=== PATIENT | male | born 1995 ===

== ENCOUNTER 2025-03-14 14:15 | Outpatient (AMB) | payer OTHER, SELFPAY ==
--- OUTSIDE RECORDS SUMMARY | 2025-03-13 10:15 | XMS_ITS | Encounter Summary ---
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 Marisol Veliz MD [address] [place] [address] Phone: tel: fax: [address] [address] Phone: tel: fax: Referral ID Status Reason Start Date Expiration Date Visits Requested Visits Authorized [id number] Authorized Specialty Services Required 12/02/2024 12/02/2025 21 21 Encounter Details Date Type Department Care Team (Latest Contact Info) Description 03/13/2025 10:15 AM EDT Treatment [address] [address] Quinton Burgos, PT 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) Social History Tobacco Use Types Packs/Day Years Used Date Smoking Tobacco: Never Smokeless Tobacco: Never Alcohol Use Standard Drinks/Week Comments Yes 0 (1 standard drink = 0.6 oz pur e alcohol) Sex and Gender Information Value Date Recorded Sex Assigned at Not on file Legal Sex Male 10:24 AM EST Gender Identity Not on file Sexual Orientation Not on file documented as of this encounter Progress Notes * Quinton Burgos, PT - 03/13/2025 10:15 AM EDT [facility] - Outpatient PHYSICAL THERAPY DAILY TREATMENT NOTE - OP Date: 03/13/2025 Visit Number: [id number] Patient Name: Keron Singleton : 1995 Age: 29 y.o. Gender: male Diagnosis: ICD-10-CM ICD-9-CM 1. 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 Precautions: Fall risk: No SUBJECTIVE Subjective Report: No new complaints. Pt states he had an uneventful weekend. Pt states he does notuse cane in the home, community only Chart Reviewed: Yes Pain: No pain reported TREATMENT INTERVENTION: Nustep at level 7 x7 min Leg press with 8 cords x15 x3 sets LLE Single-leg standing with right foot floor to/from chair seat height x15 x3 sets without BUE support and attempting to maintain neutral trunk in frontal plane for increasing left hip stability Standing left gastroc stretch with 30 sec hold x3 Side stepping along parallel bars without UE support vs purple t-band x3 laps x3 sets ASSESSMENT/Response to Treatment Good Pt with improving left hip stability with ambulation with or without cane appearing similar Patient Education: Education provided: HEP Education Provided To: Patient utilizing Explanation and Demonstration mode(s) of education Response to Education: Applied Knowledge and Verbal Understanding PLAN POC Development/Review: No Change in the Plan of Care; Participants: Patient Interventions Time Entry: Modalities: Therapeutic procedures: Total Treatment Time: 40 Documentation completed by Quinton Burgos, PT [1] Current Outpatient Medications on File Prior to Visit Medication Sig Dispense Refill acetaminophen (TYLENOL) 325 mg tablet Take 2 tablets (650 mg total) by mouth. amantadine (SYMMETREL) 100 mg capsule TAKE 1 CAPSULE BY MOUTH TWICE A DAY (Patient taking differently: Take 1 capsule (100 mg total) by mouth 1 (one) time each day.) 180 capsule 1 ketoconazole (NIZORAL) 2 % shampoo Shampoo daily, leave on for 5-10 minutes, then rinse. 120 mL 0 traZODone (DESYREL) 50 mg tablet Take 1 tablet (50 mg total) by mouth at bedtime. 30 each 2 Vitamin D3 50 mcg (2,000 unit) tablet TAKE 1 TABLET BY MOUTH EVERY DAY 30 tablet 0 No current facility-administered medications on file prior to visit. documented in this encounter Plan of Treatment Upcoming Encounters Date Type Department Care Team (Late st Contact Info) Description 03/15/2025 5:15 PM EDT Treatment [facility] [address] [address] Quinton Burgos, PT 04/19/2025 2:30 PM EST Office Visit Adult Medicine - [place] [address] [place] [address] Marisol Veliz MD [address] [place] [address] documented as of this encounter Goals Goal Patient Goal Type Associated Problems Recent Progress Patient-Stated? Author OT/vestib goals 8 visits General On track( 4:57 PM EDT) No Bonny Pretty, OT Note: Pt/mom will report compliance of HEP (pt requires A from Mom) 11/21 MET Pt will report no dizziness w/ tilting head to take medicine or sit to stand. 11/21; reports only occurs if/when has been sitting prolonged Pt will partic in baseline balance testing w/ approp addtl goals to follow 09/13/24 MET 09/13/24 Addtl goals TUG score reduced from 22 sec to no greater than 18 sec 11/21 MET and exceeded at 13 sec DGI score improved from 14 to at least 18/24 11/21 TRADE SPECIALIST LTG General On track( 025 3:27 PM EDT) No Jumana Mercedes, TRADE SPECIALIST Note: Pt will improve cognitive linguistic function to participate and communicate in iADLs supervision TRADE SPECIALIST STGs General On track( 025 5:23 PM EDT) No Jumana Mercedes, TRADE SPECIALIST Note: Pt will complete training re semantic feature analysis and other word retrieval strategies and verbalize 3 descriptors/functions/synonyms in structured tasks given min verbal cues Pt will be Oriented x 4 using environmental stimuli min verbal cues Pt will participate in ongoing training of internal/external memory strategies and ID pertinent techniques to use in daily life independently Pt will complete verbal and written concrete divergent organization tasks with min cues to ID perseveration Pt will complete auditory and visual working memory/mental flexibility tasks of 2-3 components with min cues to be 80%ac PT LTGs General No Quinton Burgos, PT Note: Pt will increase FGA without AD to to indicate improved balance with functional mobility Pt will increase left hip abduction strength to 5/5 for increased hip stability in SLS with ambulation Pt will increase Left ankle PROM DF to 10 degrees for improved ankle mobility with ambulation Pt will be independent with HEP Pt will ambulate >1100 ft in 6 minutes without AD independently documented as of this encounter Visit Diagnoses Diagnosis 

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
--- OUTSIDE RECORDS SUMMARY | 2025-03-14 19:14 | XMS_ITS | Clinical Summary ---
Author Organization [facility] [address] [facility] lding Address [address] [place] [address] Phone Care Team Providers Care Career Agent Name Role Phone Marisol Veliz MD Primary Care Prov ider Allergies No known active allergies Medications acetaminophen (TYLENOL) 325 mg tablet Take 2 tablets (650 mg total) by mouth. 4 Active Vitamin D3 50 mcg (2,000 unit) tablet TAKE 1 TABLET BY MOUTH EVERY DAY 30 tablet 4 Active amantadine (SYMMETREL) 100 mg capsule TAKE 1 CAPSULE BY MOUTH TWICE A DAY 180 capsule 1 5 Active Additional Information Patient taking differently:100 mg oralDaily, Reported on 01/17/2025 traZODone (DESYREL) 50 mg tablet Take 1 tablet (50 mg total) by mouth at bedtime. 30 each 2 5 Active ketoconazole (NIZORAL) 2 % shampoo Shampoo daily, leave on for 5-10 minutes, then rinse. 120 mL 5 03/14/20 26 Active ketoconazole (NIZORAL) 2 % shampoo Shampoo daily, leave on for 5-10 minutes, then rinse. 120 mL 5 03/14/20 25 Discontin ued(Reord er) Active Problems Problem Noted Date Diagnosed Date Anemia 03/30/2024 Asthma 03/30/2024 Underweight 03/30/2024 Closed fracture of shaft of left femur with jese yed healing 11/23/2023 Overview (03/30/2024): Commuted fracture of the distal tibia met of the facets with mild anterior lateral displacement of the distal bone overlying extensive soft tissue edema inflammation and minimal subcutaneous emphysema There was close reduction with manipulation and placement of a Eduardo X transfix external fixation system of the left distal tibia fracture Head trauma 11/23/2023 Overview (03/30/2024): CT scan showed small hemorrhage focus at the left frontal convexity consider the possibility of axonal injury small amount of left intraventricular hemorrhage linear fracture of the squamous portion of the temporal bone extending to the mandibular fossa with additional multiple facial fractures 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 11/23/2023 Overview (03/30/2024): CT maxillofacial showed left zygomatic complex fracture with diastatic fracture of the left temporal zygomatic suture and zygomatic maxillary suture fracture of the left zygomatic arch left orbital floor fracture and medial orbital fracture with extension into the lamina propria Attention deficit hyperactiv ity disorder (ADHD), predominantly inattentive type 12/18/2021 Encounters Date Type Department Care Team Description 03/13/2025 10:15 AM EDT Treatment [facility] [address] [phone] Quinton Burgos, PT 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) 03/08/2025 5:15 PM EDT Treatment [facility] [address] [phone] Quinton Burgos, PT 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) 03/06/2025 10:15 AM EDT Treatment [facility] [address] [phone] Quinton Burgos, PT 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) 03/01/2025 5:15 PM EDT Treatment [facility] [address] [phone] Quinton Burgos, PT 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) 02/27/2025 10:30 AM EDT Treatment [address] [phone] Quinton Burgos, PT 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) 02/23/2025 5:15 PM EDT Treatment [address] [phone] Quinton Burgos, PT 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) 02/20/2025 10:15 AM EDT Treatment [address] [phone] Quinton Burgos, PT 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) 02/10/2025 Telephone Adult [address] [phone] Marisol Montes MD 01/19/2025 3:00 PM EDT Evaluation [address] [phone] Quinton Burgos, PT 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 01/17/2025 1:15 PM EDT Office Visit Adult [address] [phone] Marisol Montes MD 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); Mild persistent asthma without complication 12/13/2024 Telephone Adult [address] [phone] Marisol Montes MD from Last 3 Months Immunizations Immunization Administration Dates Next Due Influenza Quadravalent, MDCK , 0.5ml, preservative free (Flucelvax) 6mo and older 03/21/2022 Tdap Tetanus diptheria acell ular pertussis (Boostrix; Adacel) 7yo and older 09/08/2017 Surgical History Surgery Date Site/Laterality Comments OTHER SURGICAL HISTORY PROCEDURE: DENIES PREVIOUS SURGERY Medical History Medical History Date Comments Anemia DX:Anemia Asthma DX:Asthma Family History Medical History Relation Name Comments Diabetes Maternal Grandmother Other: IBS Mother Relation Name Status Comments Maternal Grandmother Mother Social History Tobacco Use Types Packs/Day Years Used Date Smoking Tobacco: Never Smokeless Tobacco: Never Tobacco Cessation:Counseling Given: Not Answered Alcohol Use Standard Drinks/Week Comments Yes 0 (1 standard drink = 0.6 oz pur e alcohol) Sex and Gender Information Value Date Recorded Sex Assigned at Not on file Legal Sex Male 10:24 AM EST Gender Identity Not on file Sexual Orientation Not on file Obstetrics History Last Filed Vital Signs Vital Sign Reading Time Taken Comments Blood Pressure 103/64 01/17/2025 1:14 PM EDT Pulse 71 01/17/2025 1:14 PM EDT Temperature 36.9 C (98.5 F) 01/17/2025 1:14 PM EDT Respiratory Rate - - Oxygen Saturation - - Inhaled Oxygen Concentration - - Weight 65.9 kg (145 lb 3.2 oz) 01/17/2025 1:14 P M EDT Height 180.3 cm (5' 11 ) 02/19/2024 3:40 PM EDT Body Mass Index 20.25 02/19/2024 3:40 PM EDT Plan of Treatment Upcoming Encounters Date Type Department Care Team (Late st Contact Info) Description 03/15/2025 5:15 PM EDT Treatment [address] [phone] uQinton Burgos, PT 04/19/2025 2:30 PM EST Office Visit Adult Medicine - [place] [address] [place] [phone] Marisol Veliz MD [address] [place] [address] Health Maintenance Due Date Last Done Comments Hepatitis B Vaccines (1 of 3 - 19+ 3-dose series) 09/26/2015 Pneumococcal Vaccine: Pediatrics (0 to 5 Years) and At-Risk Patients (6 to 49 Years) (1 of 2 - PCV) 09/26/2015 COVID-19 Vaccine (3 - Modern a risk series) 02/06/2021 01/09/2021, 12/12/2020 Social Influencers of Health Screening 05/03/2022 HPV Vaccines (1 - 3-dose SCD M series) 09/26/2023 Depression Screening 05/25/2024 Influenza Vaccine (#1) 2025 03/21/2022 Cholesterol Screening (Lipid Panel) 03/22/2026 03/22/2021 DTaP,Tdap,and Td Vaccines (2 - Td or Tdap) 09/09/2027 09/08/2017 RSV Immunization Adult Patients (1 - 1-dose 75+ series) 09/26/2071 HIV Screening Completed 08/21/2022 Hepatitis C Screening Completed 08/21/2022 HIB Vaccines Aged Out No longer eligi ble based on patient's age to complete this topic Hepatitis A Vaccines Aged Out No long er eligible based on patient's age to complete this topic IPV Vaccines Aged Out No longer eligi ble based on patient's age to complete this topic MMR Vaccines Aged Out No longer eligi ble based on patient's age to complete this topic Meningococcal ACWY Vaccine Aged Out N o longer eligible based on patient's age to complete this topic Meningococcal B Vaccine Aged Out No l onger eligible based on patient's age to complete this topic RSV Immunization Patients Under 20 months Aged Out No longer eligible b ased on patient's age to complete this topic Varicella Vaccines Aged Out No longer eligible based on patient's age to complete this topic Goals Goal Patient Goal Type Associated Problems Recent Progress Patient-Stated? Author OT/vestib goals 8 visits General On track( 025 4:57 PM EDT) No Bonny Pretty, OT [...] at 13 sec DGI score improved from 14/24 to at least 18/24 11/21 WHEAT BUYER LTG General On track( 025 3:27 PM EDT) No Jumana Mercedes, WHEAT BUYER Note: Pt will improve cognitive linguistic function to participate and communicate in iADLs supervision WHEAT BU[employer]ER STGs General On track( 025 5:23 PM EDT) No Jumana Mercedes, WHEAT BUYER Note: Pt will complete training re semantic [...] ft in 6 minutes without AD independently Procedures Procedure Name Priority Date/Time Associated Diagnosis Comments HEPATITIS C SCREENING Routine 08/21/2022 HIV SCREENING Routine 08/21/2022 LIPID PANEL Routine 03/22/2021 from Last 3 Months or Most Recently Relevant to Health Maintenance Results * HIV Screening (08/21/2022) HIV Screening Abstracted us Historical Provider HEALTH MAINTENANCE Final Result * Hepatitis C Screening (08/21/2022) Pathologist [facility] Hepatitis C Screening Abstracted us Historical Provider HEALTH MAINTENANCE Final Result * (ABNORMAL) Lipid panel (03/22/2021) Pathologist [facility] LDL/HDL Ratio 3 0 - 4 Triglycerides 109 0 - 150 mg/dL Cholesterol 150(A) 0 - 100 mg/dL HDL 58 >=40 mg/dL LDL Cholesterol 71 0 - 100 mg/dL Blood Venous blood specimen / Unknown us Historical Provider LAB BLOOD ORDERABLES Zuleika elizabeth Result from Last 3 Months or Most Recently Relevant to Health Maintenance Insurance [facility] [employer] Care Teams Career Agent Relationship Specialty Start Date End Date Marisol Veliz MD [address] [place] [phone] PCP - General Internal Medicine 01/30/22
--- OUTSIDE RECORDS SUMMARY | 2025-03-14 19:16 | XMS_ITS | Clinical Summary ---
Author Organization [facility] Address [address] [facility] [address] [place] [phone] Phone Care Team Providers Care Vb Developer Name Role Phone Pcp, Unknown Primary Care Provider Unavailabl e Medications No known medications Active Problems No known active problems Encounters Date Type Department Care Team Description 01/25/2025 4:05 PM EDT - 01/25/2025 11:59 PM EDT Hospital Encounter [facility]PART[facility] [address] [place] [address] Reema Ang, OD Discharge Disposition: Home or Self Care 01/25/2025 1:00 PM EDT Office Visit [facility] [place] [facility] [address] [facility] [address] [place] [address] Reema Ang, OD Left homonymous hemianopsia (Primary Dx); Convergence insufficiency; Myopia of both eyes from Last 3 Months Social History Tobacco Use Types Packs/Day Years Used Date Smoking Tobacco: Never Assessed Education Answer Date Recorded Are you interested in more education? Not on nithya e 11/18/2024 Are you concerned about learning? Not on file 11/18/2024 No 11/18/2024 No 11/18/2024 Digital Access Answer Date Recorded No 11/18/2024 No 11/18/2024 Reliable internet access at home? Not on file 11/18/2024 Device with a working camera? Not on file Sex and Gender Information Value Date Recorded Sex Assigned at Male 01/22/2025 11:54 PM EDT Legal Sex Male 9:44 AM EDT Gender Identity Male 01/22/2025 11:54 PM EDT Sexual Orientation Straight 01/22/2025 11 :54 PM EDT Plan of Treatment Upcoming Encounters Date Type Department Care Team (Late st Contact Info) Description 02/01/2026 1:00 PM EDT Office Visit [facility] [place] [address] [facility] [address] [place] [address] Reema Ang, OD [address] [place] [address] [email or web address] Health Maintenance Due Date Last Done Comments DEPRESSION SCREENING 2008 SMOKING Hx and SMOKELESS TOB ACCO SCREENING 2009 HEPATITIS C SCREENING 2014 HIV ONE-TIME SCREENING (18-6 5 YEARS) 2014 INFLUENZA VACCINE (#1) 2024 COVID-19 VACCINE ( - 2024-2 6 season) 2025 Adult Td,Tdap Booster 09/09/2027 09/08/2017 HEPATITIS A VACCINES Aged Out No long er eligible based on patient's age to complete this topic HIB VACCINES Aged Out No longer eligi ble based on patient's age to complete this topic MENINGOCOCCAL VACCINES (ACWY) Aged Out No longer eligible based on patient's age to complete this topic MENINGOCOCCAL VACCINES (B) Aged Out N o longer eligible based on patient's age to complete this topic PNEUMOCOCCAL VACCINES (0-49 years) Aged Out No longer eligible based on patient's age to complete this topic Medical Devices Not on file Procedures Procedure Name Priority Date/Time Associated Diagnosis Comments DICK VISUAL FIELD - OU - BOTH EYES Routine 01/25/2025 2:30 PM EDT Left homonymous hemianopsia from Last 3 Months Results * Dick Visual Field - OU - Both Eyes (01/25/2025 2:30 PM EDT) Narrative HARINDER - 01/27/2025 10:18 AM EDT Right Eye Pattern: 30-2. Strategy: BUTCH - Fast. Change: Baseline. Left Eye Pattern: 30-2. Strategy: BUTCH - Fast. Change: Baseline. General Details Bilateral defects: Hemianopia. Testing performed by: Cheli Leo Notes HVF30-2 - left homonymous hemianopsia; defects appear more shallow than previous field (scanned into media) from 6 months prior Binocular Estermann - pt has ~95 degrees of horizontal binocular visual field. us Reema Ang OD OPHTHALMOLOGY IMAGING Final Res ult HARMONY from Last 3 Months Insurance [employer] [facility] [facility] [address] [address] [facility] A[facility] Care Teams Vb Developer Relationship Specialty Start Date End Date Pcp, Unknown PCP - General 11/18/24 Additional Source Comments The information contained in this document represents components of the legal health record. It is not the complete legal health record.[facility]
--- OUTSIDE RECORDS SUMMARY | 2025-03-14 19:16 | XMS_ITS | Clinical Summary ---
Author Organization [facility] Address [address] [facility] [address] [place] [address] Care Team Providers Care Flotation Operator Name Role Phone Unavailable Primary Care Provider Unavailabl e Allergies No known active allergies Medications amantadine (Symmetrel) 100 MG capsule Take 1 capsule by mouth Once per day. 12/01/2023 Active cholecalciferol (Vitamin D-3) 50 MCG (1999) tablet 04/29/2024 Active Active Problems No known active problems Social History Tobacco Use Types Packs/Day Years Used Date Smoking Tobacco: Never Assessed Sex and Gender Information Value Date Recorded Sex Assigned at Male 06/24/2024 3:55 PM EST Legal Sex Male 3:51 PM EST Gender Identity Male 06/24/2024 3:55 PM EST Sexual Orientation Straight 06/24/2024 3: 55 PM EST Last Filed Vital Signs Vital Sign Reading Time Taken Comments Blood Pressure 110/78 06/27/2024 11:02 AM EST Pulse - - Temperature 36.2 C (97.1 F) 06/27/2024 11:02 AM EST Respiratory Rate - - Oxygen Saturation - - Inhaled Oxygen Concentration - - Weight - - Height - - Body Mass Index - - Plan of Treatment Upcoming Encounters Date Type Department Care Team (Late st Contact Info) Description 07/27/2025 4:00 PM EST Office Visit [place] [facility] [address] [place] [address] Trinity Wolff, PRISCA [address] [place] [address] Health Maintenance Due Date Last Done Comments Depression Screening 1996 HIV Screening 1996 SDOH Screening 1996 Disability Screening 1996 Alcohol/Substance Use Screening 2008 Tobacco Screening 2008 Family Planning (PISQ) 09/26/2011 HPV Vaccines (1 - Male 3-dos e series) 09/26/2011 Hepatitis C Screening 2014 Hepatitis B Vaccines (1 of 3 - 19+ 3-dose series) 09/26/2015 Pneumococcal Vaccine: Pediatrics (0 to 5 Years) and At-Risk Patients (6 to 49) Years (1 of 2 - PCV) 09/26/2015 COVID-19 Vaccine (3 - 2024-2 6 season) 2025 01/09/2021, 12/12/2020 Influenza Vaccine (#1) 2025 03/21/2022 DTaP/Tdap/Td Vaccines (2 - T d or Tdap) 09/09/2027 09/08/2017 Zoster Vaccines (1 of 2) 2046 RSV Patients and Patients Aged 60 years or older (1 - 1-dose 75+ series) 09/26/2071 HIB Vaccines Aged Out No longer eligi [...] patient's age to complete this topic Meningococcal Vaccine Aged Out No addison areli eligible based on patient's age to complete this topic RSV under 20 months Aged Out No longe r eligible based on patient's age to complete this topic Rotavirus Vaccines Aged Out No longer eligible based on patient's age to complete this topic Insurance [facility] STANDARD [facility]
== END 2025-03-14 14:34 | disposition home or self-care (01) ==
PROVIDERS: PCP Internal Medicine; Referring Provider Internal Medicine; Visit Provider Psychiatry & Neurology Neurology
DX: S06.9XAA Unspecified intracranial injury with loss of consciousness status unknown, initial encounter (principal)
CPT/HCPCS: 99214

== ENCOUNTER → 2025-03-14 14:15 | Outpatient (BNVA) | payer OTHER, SELFPAY | PROVIDERS: PCP Internal Medicine; Referring Provider Internal Medicine; Visit Provider Psychiatry & Neurology Neurology | DX: S06.9XAD Unspecified intracranial injury with loss of consciousness status unknown, subsequent encounter (principal) | CPT/HCPCS: 99212 ==